=== PATIENT | female | born 1970 | race Caucasian/White ===

== ENCOUNTER 2016-07-01 12:36 | Emergency (ER) | payer OTHER ==
--- NOTE | ~2016-07-01 | EKG ---
PATIENT: BELKYS HARRIS UNIT #: [id number] Ventricular Rate: 78 BPM Atrial Rate: 78 BPM P-R Interval: 182 ms QRS Duration: 82 ms Q-T Interval: 378 ms QTC Calculation(Bezet): 430 ms P [place]: 19 degrees Calculated R [place]: -4 degrees Calculated T [place]: 2 degrees Diagnosis Line: Normal sinus rhythm Diagnosis Line: Normal ECG Diagnosis Line: Diagnosis Line: Confirmed by OTTO SAUL MD ([id number]) on 07/02/2016 Diagnosis Line: 10:36:40 AM INTERPRETING MD: KG NELSON
--- NOTE | ~2016-07-01 | CR72 ---
[facility] A Service of [facility] & [facility] RADIOLOGY TEXT RESULTS PATIENT: BELKYS HARRIS LOCATION: [facility] : 70 UNIT #: [id number] AGE: [address]: Fredi Frank MD SEX: F ORDER DR: [id number] [facility] [address] [place], [place] [address] [id number] E MR#: [id number] Acc #: [id number] NAME: BELKYS HARRIS : 1970 SEX: F STUDY DATE/TIME: 07/01/2016 14:02 UNIT: [facility] ROOM: STUDY DESCRIPTION: CR Chest Single View Portable Attending Physician: Fredi Frank M.D. Ordering Physician: Fredi Frank M.D. Primary Care Physician: No Primary Care Physician MEDICAL IMAGING REPORT This report is preliminary unless electronic signature is present EXAM AP portable chest. DATE 07/01/2016 HISTORY Chest pain, back pain and shortness of breath today. Diabetes. Previous history of smoking. COMPARISON AP portable chest 06/14/2013. FINDINGS No acute airspace disease. Heart size within normal limits. Degenerative endplate changes of the thoracic spine. No pneumothorax. IMPRESSION 1. No acute cardiopulmonary findings. Dictated by... Laura Buck M.D. THIS IS AN ELECTRONICALLY VERIFIED REPORT Laura Buck M.D. at 07/03/2016 7:14 AM MAYCOL/cas TD: 07/01/2016 15:19 JOB #: [id number] MEDICAL IMAGING REPORT Page 1 of 1 COPY
[2016-07-01 13:45] LABS: BASOPHIL% 0.1 % (0-2.5); EOSINOPHIL# 0.3 X10e3 (0-0.7); EOSINOPHIL% 2.4 % (0.0-7.0); HEMATOCRIT 47.6 % (35.0-45.0); HEMOGLOBIN 15.4 gm/dL (12.0-16.0); LYMPHOCYTE# 4.3 X10e3 (1.0-3.5); LYMPHOCYTE% 34.2 % (17.0-45.0); MEAN CELL VOLUME 90.1 FL (83-96); MEAN CORPUSCULAR HEMOGLOBIN 29.1 PG (28-34); MEAN CORPUSCULAR HGB CONC 32.4 g/dL (30-36); MEAN PLATELET VOLUME 9.3 FL (6.5-11.5); MONOCYTE# 0.7 X10e3 (0-1.0); MONOCYTE% 5.8 % (3.0-12.0); NEUTROPHIL# 7.2 X10e3 (1.5-7.1); NEUTROPHIL% 57.5 % (40-75); PLATELET COUNT 244 X10e3 (140-420); RED BLOOD COUNT 5.28 X10e (3.90-5.30); RED CELL DISTRIBUTION WIDTH 13.6 % (11.0-15.5); WHITE BLOOD COUNT 12.5 X10e3 (4.0-10.5)
[2016-07-01 13:47] LABS: DIFF IND NO
[2016-07-01 13:53] LABS: POC - CKMB <1.0 ng/mL (0.0-7.9); POC - TROPONIN <0.05 ng/mL (<=0.05)
[2016-07-01 14:09] LABS: ALBUMIN SERUM 3.9 g/dL (3.5-5.0); BILIRUBIN, DIRECT 0.1 mg/dL (0.0-0.2); BILIRUBIN,INDIRECT 0.4 mg/dL (0.0-0.9); BILIRUBIN,TOTAL 0.5 mg/dL (0.2-2.0); BUN/CREATININE RATIO 12.85; CALCIUM SERUM 8.8 mg/dL (8.4-10.2); CREATININE SERUM 0.7 mg/dL (0.6-1.4); GLOM FILT RATE Estimated 104.6 mL/min (>60); POTASSIUM 3.9 mmol/L (3.5-5.1); PROTEIN TOTAL SERUM 7.5 g/dL (6.0-8.3)
[2016-07-01 15:26] LABS: POC - CKMB <1.0 ng/mL (0.0-7.9); POC - TROPONIN <0.05 ng/mL (<=0.05)
== END 2016-07-01 15:52 | disposition home or self-care (01) ==
LOC: CED 12:36
PROVIDERS: Emergency Medicine
DX: R07.89 Other chest pain (principal); F41.9 Anxiety disorder, unspecified; E11.65 Type 2 diabetes mellitus with hyperglycemia; I10 Essential (primary) hypertension; Z87.440 Personal history of urinary (tract) infections; F17.200 Nicotine dependence, unspecified, uncomplicated; Z88.8 Allergy status to other drugs, medicaments and biological substances
CPT/HCPCS: 36415; 71010; 80048; 80076; 82553; 82947; 84484; 85025; 93005; 96360; 96361; 96374; 99284

== ENCOUNTER 2016-10-27 13:38 | Emergency (ER) | payer OTHER ==
[~2016-10-27] VITALS: Ht 175.3 cm; Wt 100.2 kg
--- NOTE | ~2016-10-27 | CT2 ---
[facility] A Service of [facility] RADIOLOGY TEXT RESULTS PATIENT: BELKYS HARRIS LOCATION: [facility] : 70 UNIT #: [id number] AGE: [address]: Lalit Day MD SEX: F ORDER DR: [id number] [facility] [address] [place], [place] [address] [id number] E MR#: [id number] Acc #: [id number] NAME: BELKYS HARRIS : 1970 SEX: F STUDY DATE/TIME: 10/27/2016 17:59 UNIT: [facility] ROOM: STUDY DESCRIPTION: CT Abd and Pelv W Cont Attending Physician: Lalit Day M.D. Ordering Physician: Lalit Day M.D. Primary Care Physician: Primary Care Physician No MEDICAL IMAGING REPORT This report is preliminary unless electronic signature is present EXAM CT abdomen and pelvis with IV contrast HISTORY Diarrhea and abdomen distension, nausea and back pain for [address] exam was performed with one or more of the following radiation dose reduction techniques: automatic exposure control, adjustment of mA and/or kV according to patient size, and iterative reconstruction. FINDINGS CT abdomen and pelvis was performed with IV contrast. CT ABDOMEN: There is moderately severe diffuse wall thickening of the right colon extending from the cecum to the hepatic flexure with mild adjacent pericolonic stranding, most compatible with segmental infectious or inflammatory colitis. No adjacent fluid collection. No abscess. The lung bases are clear. Fatty infiltration of the liver. Cholecystectomy. No hepatic mass. No biliary dilatation. The spleen, pancreas, kidneys, and adrenal glands are normal. Normal caliber abdominal aorta. CT PELVIS: Normal appendix. The uterus and adnexa are unremarkable. No free fluid. Urinary bladder is normal. Degenerative changes in the lower lumbar spine. IMPRESSION 1. Moderately severe diffuse wall thickening of the right colon extending from the cecum to the hepatic flexure is most characteristic of segmental infectious or inflammatory colitis. No bowel obstruction. No free fluid. No abscess. 2. Normal appendix. 3. No acute findings in the remainder of the abdomen or pelvis. [facility] A Service of [facility] & [facility] RADIOLOGY TEXT RESULTS PATIENT: BELKYS HARRIS LOCATION: [facility] : 70 UNIT #: [id number] AGE: [address]: Lalit Day MD SEX: F ORDER DR: Dictated by... Emanuel Smith M.D. THIS IS AN ELECTRONICALLY VERIFIED REPORT Emanuel Smith M.D. at 10/28/2016 11:45 PM HALIE/jerry TD: 10/28/2016 09:44 JOB #: [id number] MEDICAL IMAGING REPORT Page 1 of 1 COPY
--- NOTE | ~2016-10-27 | EKG ---
PATIENT: BELKYS HARRIS UNIT #: [id number] Ventricular Rate: 76 BPM Atrial Rate: 76 BPM P-R Interval: 168 ms QRS Duration: 82 ms Q-T Interval: 406 ms QTC Calculation(Bezet): 456 ms P [place]: 22 degrees Calculated R [place]: 16 degrees Calculated T [place]: 26 degrees Diagnosis Line: Normal sinus rhythm Diagnosis Line: Normal ECG Diagnosis Line: When compared with ECG of 01-JUL-2016 12:36, Diagnosis Line: No significant change was found Diagnosis Line: Confirmed by OTTO SAUL MD ([id number]) on 10/28/2016 Diagnosis Line: 7:35:49 PM INTERPRETING MD: KG NELSON
[2016-10-27 15:09] LABS: URINE SOURCE CLEAN CATCH
[2016-10-27 15:18] LABS: URINE APPEARANCE CLEAR; URINE BILIRUBIN NEG (NEG); URINE BLOOD NEG (NEG); URINE COLOR YELLOW; URINE GLUCOSE >1000 MG/DL (NEG); URINE KETONE NEG (NEG); URINE LEUKOCYTE ESTERASE NEG (NEG); URINE NITRATE NEG (NEG); URINE PH 5.5 (5-8); URINE PROTEIN NEG (NEG); URINE SPECIFIC GRAVITY 1.034 (1.003-1.035); URINE UROBILINOGEN 0.2 MG/DL (NEG)
[2016-10-27 15:21] LABS: BASOPHIL# 0.1 X10e3 (0-0.3); BASOPHIL% 0.5 % (0-2.5); EOSINOPHIL# 0.2 X10e3 (0-0.7); HEMATOCRIT 47.1 % (35.0-45.0); HEMOGLOBIN 15.6 gm/dL (12.0-16.0); LYMPHOCYTE# 3.6 X10e3 (1.0-3.5); LYMPHOCYTE% 22.9 % (17.0-45.0); MEAN CELL VOLUME 89.8 FL (83-96); MEAN CORPUSCULAR HEMOGLOBIN 29.8 PG (28-34); MEAN CORPUSCULAR HGB CONC 33.2 g/dL (30-36); MEAN PLATELET VOLUME 8.9 FL (6.5-11.5); MONOCYTE# 0.8 X10e3 (0-1.0); MONOCYTE% 5.2 % (3.0-12.0); NEUTROPHIL# 11.1 X10e3 (1.5-7.1); NEUTROPHIL% 70.4 % (40-75); PLATELET COUNT 250 X10e3 (140-420); RED BLOOD COUNT 5.24 X10e (3.90-5.30); WHITE BLOOD COUNT 15.7 X10e3 (4.0-10.5)
[2016-10-27 15:29] LABS: CULTURE INDICATED? NO
[2016-10-27 15:42] LABS: POC - CKMB 1.1 ng/mL (0.0-7.9); POC - TROPONIN <0.05 ng/mL (<=0.05)
[2016-10-27 15:52] LABS: DIFF IND YES
[2016-10-27 16:02] LABS: ALBUMIN SERUM 3.9 g/dL (3.5-5.0); BILIRUBIN, DIRECT 0.1 mg/dL (0.0-0.2); BILIRUBIN,INDIRECT 0.4 mg/dL (0.0-0.9); BILIRUBIN,TOTAL 0.5 mg/dL (0.2-2.0); BUN/CREATININE RATIO 14.28; CALCIUM SERUM 8.6 mg/dL (8.4-10.2); CREATININE SERUM 0.7 mg/dL (0.6-1.4); GLOM FILT RATE Estimated 104.6 mL/min (>60); POTASSIUM 4.3 mmol/L (3.5-5.1); PROTEIN TOTAL SERUM 7.4 g/dL (6.0-8.3)
[2016-10-27 16:18] LABS: ANISOCYTOSIS SL; PLATELET ESTIMATE NORMAL (NORMAL)
== END 2016-10-27 19:12 | disposition home or self-care (01) ==
LOC: CED 13:38
DX: K52.9 Noninfective gastroenteritis and colitis, unspecified (principal); E11.9 Type 2 diabetes mellitus without complications; F17.200 Nicotine dependence, unspecified, uncomplicated; Z88.8 Allergy status to other drugs, medicaments and biological substances; Z90.49 Acquired absence of other specified parts of digestive tract
CPT/HCPCS: 36415; 74177; 80048; 80076; 81003; 82553; 83690; 84484; 85025; 93005; 96361; 96374; 96375; 99284; J2270; J2405; Q9967